=== PATIENT | male | born 2000 | race Caucasian/White ===

== ENCOUNTER 2018-05-01 21:24 | Emergency (ER) | payer BC ==
[2018-05-01] MEDS: DIPHENHYDRAMINE 50 MG INJ IM (23:22)
[2018-05-01] MEDS: METHYLPREDNISOLONE 125 MG INJ IM (23:23)
[2018-05-01] MEDS: FAMOTIDINE 20 MG TAB PO (23:23)
[2018-05-01] MEDS: ONDANSETRON (ODT) 4 MG TAB ODT (23:23)
== END 2018-05-01 23:39 | disposition home or self-care (01) ==
LOC: FTE 23:39
DX: R22.0 Localized swelling, mass and lump, head (principal)
CPT/HCPCS: 96372; 99284-25